=== PATIENT | female | born 1990 ===

== ENCOUNTER 2019-03-12 13:10 | Inpatient (IN) | payer OTHER ==
[~2019-03-12] VITALS: Ht 167.6 cm; Wt 77.3 kg
[2019-03-12 14:06] LABS: BASOPHILS ABSOLUTE AUTO 0.02 K/mm3 (0.00-0.23); BASOPHILS PERCENT AUTO 0 % (0-2); EOSINOPHILS ABSOLUTE AUTO 0.07 K/mm3 (0.00-0.68); EOSINOPHILS PERCENT AUTO 1 % (0-6); Hematocrit 39.1 % (33.0-51.0); Hemoglobin 12.3 g/dL (11.5-16.0); IMMATURE GRAN ABSOLUTE AUTO 0.15 K/mm3 (0.00-0.10); IMMATURE GRAN PERCENT AUTO 1 % (0-1); LYMPHOCYTES PERCENT AUTO 19 % (21-46); MONOCYTES PERCENT AUTO 8 % (4-13); Mean Corpuscular HGB 27.3 pg (26.0-34.0); Mean Corpuscular HGB Conc 31.5 g/dL (31.5-36.5); Mean Corpuscular Volume 87 fL (80-100); Mean Platelet Volume 10.8 fL (9.1-12.4); NEUTROPHILS ABSOLUTE AUTO 7.95 K/mm3 (1.96-9.15); NEUTROPHILS PERCENT AUTO 71 % (41-73); Platelet Count 157 K/mm3 (150-400); RDW Coefficient Variation 21.2 % (11.7-14.2); RDW Standard Deviation 66.9 fL (35.1-46.3); Red Blood Cell Count 4.51 M/mm3 (3.80-5.20); White Blood Cell Count 11.19 K/mm3 (4.00-11.30)
[2019-03-12] MEDS ORDERED: IRON150C PO (14:09)
[2019-03-12] MEDS ORDERED: PRENATAL TABLE1 EAC2 PO (14:09)
[2019-03-12 19:01] LABS: BASOPHILS ABSOLUTE AUTO 0.02 K/mm3 (0.00-0.23); BASOPHILS PERCENT AUTO 0 % (0-2); EOSINOPHILS ABSOLUTE AUTO 0.03 K/mm3 (0.00-0.68); EOSINOPHILS PERCENT AUTO 0 % (0-6); Hematocrit 38.5 % (33.0-51.0); Hemoglobin 11.9 g/dL (11.5-16.0); IMMATURE GRAN ABSOLUTE AUTO 0.13 K/mm3 (0.00-0.10); IMMATURE GRAN PERCENT AUTO 1 % (0-1); LYMPHOCYTES ABSOLUTE AUTO 2.14 K/mm3 (0.84-5.20); LYMPHOCYTES PERCENT AUTO 12 % (21-46); MONOCYTES ABSOLUTE AUTO 1.07 K/mm3 (0.16-1.47); MONOCYTES PERCENT AUTO 6 % (4-13); Mean Corpuscular HGB 26.8 pg (26.0-34.0); Mean Corpuscular HGB Conc 30.9 g/dL (31.5-36.5); Mean Corpuscular Volume 87 fL (80-100); Mean Platelet Volume 10.5 fL (9.1-12.4); NEUTROPHILS ABSOLUTE AUTO 14.18 K/mm3 (1.96-9.15); NEUTROPHILS PERCENT AUTO 81 % (41-73); Platelet Count 147 K/mm3 (150-400); RDW Coefficient Variation 21.2 % (11.7-14.2); RDW Standard Deviation 66.4 fL (35.1-46.3); Red Blood Cell Count 4.44 M/mm3 (3.80-5.20); White Blood Cell Count 17.57 K/mm3 (4.00-11.30)
--- NOTE | 2019-03-12 20:17 | NUR ---
FRESH ICE WATER GIVEN AT THIS TIME.
--- NOTE | 2019-03-12 21:38 | NUR ---
WEIGHT OF BLOOD IN PAD AFTER 3 HOURS WAS 56 GRAMS
[2019-03-13 05:48] LABS: Hematocrit 31.8 % (33.0-51.0); Hemoglobin 10.3 g/dL (11.5-16.0); Mean Corpuscular HGB 27.3 pg (26.0-34.0); Mean Corpuscular HGB Conc 32.4 g/dL (31.5-36.5); Mean Platelet Volume 10.5 fL (9.1-12.4); Platelet Count 142 K/mm3 (150-400); Red Blood Cell Count 3.77 M/mm3 (3.80-5.20); White Blood Cell Count 14.12 K/mm3 (4.00-11.30)
[2019-03-13 05:52] LABS: Mean Corpuscular Volume 84 fL (80-100)
--- NOTE | 2019-03-13 18:26 | NUR ---
REPORT TO ONCOMING SHIFT
[2019-03-14] MEDS ORDERED: IBUP800 (08:47)
[2019-03-14] MEDS ORDERED: Percocet 5-3251 EACH (08:48)
--- NOTE | 2019-03-14 09:55 | NUR ---
03/14/19 0955 Lory Reyes VERIFICATIONS: EDIT CHART.
== END 2019-03-14 10:00 | disposition home or self-care (01) | DRG 798 ==
LOC: OBS 13:10 → BC 13:13
PROVIDERS: ADMIT Family Medicine
PROC: 10E0XZZ Delivery of Products of Conception, External Approach (ICD-10-PCS; principal; 2019-03-12)
PROC: 0HQ9XZZ Repair Perineum Skin, External Approach (ICD-10-PCS; 2019-03-12)
PROC: 0UL70ZZ Occlusion of Bilateral Fallopian Tubes, Open Approach (ICD-10-PCS; 2019-03-14)
DX: O77.0 Labor and delivery complicated by meconium in amniotic fluid (principal); Z37.0 Single live birth; O70.0 First degree perineal laceration during delivery; Z3A.39 39 weeks gestation of pregnancy; Z30.2 Encounter for sterilization
CPT/HCPCS: 36415; 85025; 85027; 86850; 86900; 86901; 88302; J1720; J2210; J2250; J2590; J3010; J7120